=== PATIENT | male | born 1960 | race Caucasian/White ===

== ENCOUNTER 2022-03-28 06:09 | Day surgery (SDC) | payer OTHER ==
[~2022-03-28] VITALS: Ht 167.6 cm; Wt 81.6 kg
[2022-03-28] MEDS ORDERED: CEFAZOLIN SOD 2 GM in D5W 50 ML IV ONE (07:00)
[2022-03-28] MEDS ORDERED: BUPIVACAINE LIPOSOME/PF 266 MG/20 ML VIAL INFIL ONE (08:27)
[2022-03-28] MEDS ORDERED: IBUPROFEN 600 MG TABLET PO ONE (08:30)
[2022-03-28] MEDS ORDERED: ONDANSETRON HCL 4 MG/2 ML VIAL IVP PRN (08:30)
[2022-03-28] MEDS ORDERED: MORPHINE 4 MG INJ. 4 MG/ML VIAL IVP PRN (08:30)
[2022-03-28] MEDS ORDERED: KETOROLAC TROMETHAMINE 30 MG VIAL IVP PRN (08:30)
[2022-03-28] MEDS ORDERED: NS IRRIG SOLN 1000 ML IR ONE (09:15)
[2022-03-28] MEDS ORDERED: SEVOFLURANE 15 MIN GAS INH ONE (09:15)
[2022-03-28] MEDS ORDERED: LR 1,000 ML IV.SOLN IV ONE (09:15)
[2022-03-28] MEDS ORDERED: BUPIVACAINE /PF 0.25% 30 ML VIAL INJ ONE (09:15)
[2022-03-28] MEDS ORDERED: ONDANSETRON HCL 4 MG/2 ML VIAL ONE (09:15)
[2022-03-28] MEDS ORDERED: PROPOFOL 200MG/ 20ML VIAL (DIPRIVAN) IV ONE (09:15)
[2022-03-28] MEDS ORDERED: ROCURONIUM BROMIDE 10 MG/ML (ZEMURON) ONE (09:15)
[2022-03-28] MEDS ORDERED: SUCCINYLCHOLINE CHLORIDE 20 MG/ML(QUELICIN) ONE (09:15)
[2022-03-28] MEDS ORDERED: LIDOCAINE/EPI 1% 1:100000 20 ML VIAL INJ ONE (09:15)
[2022-03-28] MEDS ORDERED: fentaNYL CITRATE/PF 100 MCG/2 ML AMP ONE (09:15)
[2022-03-28] MEDS ORDERED: KETOROLAC TROMETHAMINE 30 MG VIAL ONE ×2 (09:15→09:38)
[2022-03-28] MEDS ORDERED: MIDAZOLAM HCL 5 MG/ML VIAL (VERSED) IV ONE (09:15)
[2022-03-28] MEDS ORDERED: HYDROmorphone 1 MG/ML INJ. CARTRIDGE ONE (09:32)
[2022-03-28] MEDS: HYDROmorphone 1 MG/ML INJ. CARTRIDGE IVP PRN ×2 (09:33→09:48)
[2022-03-28 15:56] VITALS: BP_SYST 120
== END 2022-03-28 11:53 | disposition home or self-care (01) ==
LOC: SDS 06:09 → SMU 06:10 → SDS 11:53
PROVIDERS: ATTEND Surgery
DX: K42.0 Umbilical hernia with obstruction, without gangrene (principal); F17.210 Nicotine dependence, cigarettes, uncomplicated; Z20.822 Contact with and (suspected) exposure to COVID-19; Z79.899 Other long term (current) drug therapy
CPT/HCPCS: 36415; 93005; 49587; 88302; U0003; C9290; J3490; J0690; J1885; J2250; J2405; J2704; J0330; J3010; J1170; J7060; J7120; C1781

== ENCOUNTER 2022-03-28 15:27 | Emergency (ER) | payer OTHER ==
[~2022-03-28] VITALS: Ht 167.6 cm; Wt 81.6 kg
[2022-03-28 15:38] VITALS: BP_SYST 129
--- NOTE | 2022-03-28 15:38 | NUR ---
Pt triaged and placed in [facility] pending MD dispo.
--- NOTE | 2022-03-28 15:40 | NUR ---
Dr Novak to [facility] area to evaluate pt.
--- NOTE | 2022-03-28 15:43 | NUR ---
Pt here from home with bleeding from umbilicus s/p hernia repair this AM. Pain 4/10 reported. Bleeding controlled when area checked. Pt alert and oriented x 3 upon face to face assessment. VSS when checked. Dr Novak to contact pt's surgeon (Dr Hernandez). Pending dispo.
[2022-03-28] MEDS ORDERED: BACITRACIN 1 GM OINT TP ONE (16:06)
--- NOTE | 2022-03-28 16:25 | NUR ---
Patient given written and verbal discharge instructions and verbalizes understanding. ER MD discussed with patient the results and treatment provided. Patient in stable condition. ID arm band removed. Patient educated on pain management and to follow up with PMD. Pain improved. Opportunity for questions provided and answered.
== END 2022-03-28 16:25 | disposition home or self-care (01) ==
LOC: SED 15:27
DX: T81.31XA Disruption of external operation (surgical) wound, not elsewhere classified, initial encounter (principal)
CPT/HCPCS: 99282